=== PATIENT | female | born 1950 | race Caucasian/White ===

== ENCOUNTER → 2017-02-07 | Outpatient (CLI) | payer MEDICARE ==
[2014-11-04 10:46] VITALS: BP 141/70
[~2017-02-07] MED LIST: CHOL100013 PO; CYAN10005 PO; ESTR1TAB15 PO; FLUO40CA9 PO; HYDR10TA2 PO; HYDR1TAB20 PO; LANS30CA PO; MELO-150 PO; SOLI10TA PO; TRAZ100T12 PO
--- NOTE | 2017-02-07 11:44 | KCIC ---
PROCEDURE MR of the left shoulder HISTORY Left shoulder pain. Pain since July 2016. COMPARISON None TECHNIQUE Routine multiplanar sequences are obtained. FINDINGS Acromioclavicular joint is mildly degenerative with slight undersurface mass-effect. Mild rotator cuff tendinosis signal. Small intraosseous cyst at the greater tuberosity. No measurable rotator cuff tear. Trace subdeltoid bursal effusion. No significant glenohumeral joint effusion. Tear of the posterosuperior labrum. Mild irregularity of the inferior labrum. Mild glenohumeral joint chondromalacia. Biceps tendon intact. No bone lesion or acute fracture. No acute soft tissue injury. IMPRESSION 1. Rotator cuff tendinosis without measurable tear. 2. Posterosuperior labral tear. 3. Inferior labral degeneration or tear. Electronically signed by: Henry Samayoa MD (February 07, 2017 11:42:35)
== END | disposition home or self-care (01) ==
LOC: KCIC MRI 10:27
PROVIDERS: ATTEND Family Medicine
DX: M25.512 Pain in left shoulder (principal)
CPT/HCPCS: 73221

== ENCOUNTER → 2018-07-15 | Outpatient (CLI) | payer MEDICARE ==
[2014-11-04 10:46] VITALS: BP 141/70
[~2018-07-15] MED LIST changes: -MELO-150 PO; +MELO15TA23 PO; -SOLI10TA PO; +SOLI10TA2 PO; +TRAZ-86 PO; -TRAZ100T12 PO
--- NOTE | 2018-07-15 11:14 | RAD ---
DATE: 07/15/2018 EXAM: MAMMO [facility] SCREENING BILATERAL HISTORY: Routine screening COMPARISON: None available This study was interpreted with the benefit of Computerized Aided Detection (CAD). Breast Density: SCATTERED The breast parenchyma shows scattered fibroglandular densities. Breast parenchyma level B. FINDINGS: 2-D and 3-D tomosynthesis imaging was performed in CC and MLO projections. Residual fibroglandular densities are asymmetric with patchy asymmetric opacities in the central and lateral aspects of the left breast compared to the right. These may be related to the history of previous left breast surgery. Benign type calcifications are present in both breasts. No suspicious microcalcifications are evident. IMPRESSION: Asymmetric left breast opacities as described above. In the absence of previous mammograms to document stability, left breast ultrasound is suggested for further evaluation. BI-RADS CATEGORY: 0 INCOMPLETE: NEEDS ADDITIONAL IMAGING EVALUATION AND/OR PRIOR MAMMOGRAMS FOR COMPARISON. RECOMMENDED FOLLOW-UP: ADD ADDITIONAL IMAGING PQRS compliance statement: Patient information was entered into a reminder system with a target due date for the next mammogram. Mammography is a sensitive method for finding small breast cancers, but it does not detect them all and is not a substitute for careful clinical examination. A negative mammogram does not negate a clinically suspicious finding and should not result in delay in biopsying a clinically suspicious abnormality. "Our facility is accredited by the [employer] Mammography [employer]."
== END | disposition home or self-care (01) ==
LOC: MAMMO 08:22
PROVIDERS: ATTEND Family Medicine
DX: Z12.31 Encounter for screening mammogram for malignant neoplasm of breast (principal)
CPT/HCPCS: 77063; 77067

== ENCOUNTER → 2018-07-16 | Outpatient (CLI) | payer MEDICARE ==
[2014-11-04 10:46] VITALS: BP 141/70
--- NOTE | 2018-07-16 13:42 | RAD ---
Left breast ultrasound, 07/16/2018: History: Suspicious screening study Screening mammograms demonstrated asymmetric patchy densities in the lateral aspect of the left breast. No previous mammograms are available to establish stability. The lateral left breast was scanned from the 12:00 to 6:00 locations. Heterogeneous fibroglandular shadows are evident. No mass or unusual fluid collection is seen. IMPRESSION: The targeted ultrasound exam of left breast shows no suspicious abnormality. Follow-up left mammography in 6 months and bilateral mammography at one year is suggested. BI-RADS 3-probably benign findings
== END | disposition home or self-care (01) ==
LOC: US 12:58
PROVIDERS: ATTEND Family Medicine
DX: R92.8 Other abnormal and inconclusive findings on diagnostic imaging of breast (principal); K21.9 Gastro-esophageal reflux disease without esophagitis; M19.90 Unspecified osteoarthritis, unspecified site; F32.9 Major depressive disorder, single episode, unspecified; F41.9 Anxiety disorder, unspecified; Z90.710 Acquired absence of both cervix and uterus; Z79.899 Other long term (current) drug therapy
CPT/HCPCS: 76641

== ENCOUNTER → 2019-01-06 | Outpatient (CLI) | payer MEDICARE ==
[2014-11-04 10:46] VITALS: BP 141/70
--- NOTE | 2019-01-06 11:25 | RAD ---
DATE: 01/06/2019 EXAM: MAMMO [facility] DIAG LT HISTORY: 6 month follow-up COMPARISON: 07/15/2018 This study was interpreted with the benefit of Computerized Aided Detection (CAD). Breast Density: SCATTERED The breast parenchyma shows scattered fibroglandular densities. Breast parenchyma level B. FINDINGS: 2-D and 3-D tomosynthesis imaging was performed in CC and MLO projections. Heterogeneous fibroglandular densities evident on the previous study are unchanged. No new or enlarging breast densities are seen. Benign type calcifications are present. No suspicious microcalcifications have developed. IMPRESSION: Stable left mammograms without evidence of malignancy. Follow-up bilateral mammography in 6 months is suggested. BI-RADS CATEGORY: 3 PROBABLY BENIGN FINDING(S)-SHORT INTERVAL FOLLOW-UP SUGGESTED RECOMMENDED FOLLOW-UP: 6M 6 MONTH FOLLOW-UP PQRS compliance statement: Patient information was entered into a reminder system with a target due date for the next mammogram. Mammography is a sensitive method for finding small breast cancers, but it does not detect them all and is not a substitute for careful clinical examination. A negative mammogram does not negate a clinically suspicious finding and should not result in delay in biopsying a clinically suspicious abnormality. "Our facility is accredited by the [employer] Mammography Program."
== END | disposition home or self-care (01) ==
LOC: MAMMO 10:35
PROVIDERS: ATTEND Family Medicine
DX: Z09 Encounter for follow-up examination after completed treatment for conditions other than malignant neoplasm (principal); R92.8 Other abnormal and inconclusive findings on diagnostic imaging of breast
CPT/HCPCS: 77065; G0279; 77061